=== PATIENT | female | born 1995 | race Caucasian/White ===

== ENCOUNTER 2017-01-20 08:24 | Emergency (ER) | payer MEDICAID, OTHER ==
[~2017-01-20] VITALS: Ht 154.9 cm; Wt 47.6 kg
[~2017-01-20 08:24] MED LIST: IBUP-2213 PO; TYL3 PO
[2017-01-20 08:32] VITALS: BP 105/53
--- NOTE | 2017-01-20 08:50 | NUR ---
PT PRESENTS TO ER W/C/O ABDOMINAL PAIN SINCE LAST NOC. 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 ER MD MADE AWARE OF PT STATUS.
--- NOTE | 2017-01-20 09:03 | NUR ---
ULTRASOUND AT BEDSIDE
[2017-01-20 09:07] LABS: BASOPHILS # (AUTO) 0.2 K/uL (0.00-0.22); BASOPHILS % (AUTO) 1.6 % (0.0-2.0); EOSINOPHILS # (AUTO) 0.3 K/uL (0-0.4); EOSINOPHILS % (AUTO) 2.7 % (0.0-4.0); HEMOGLOBIN 13.4 g/dL (12.0-16.0); LYMPHOCYTES # (AUTO) 1.5 K/uL (2.5-16.5); LYMPHOCYTES % (AUTO) 13.7 % (20.5-51.1); MEAN CORPUSCULAR HEMOGLOBIN 31 pg (27-31); MEAN CORPUSCULAR HGB CONC 33 g/dL (33-37); MEAN CORPUSCULAR VOLUME 92 fL (80-94); MONOCYTES # (AUTO) 0.6 K/uL (0.8-1.0); MONOCYTES % (AUTO) 5.8 % (1.7-9.3); NEUTROPHILS # (AUTO) 8.2 K/uL (1.8-7.7); NEUTROPHILS % (AUTO) 76.2 % (42.2-75.2); PLATELET COUNT (AUTO) 296 K/uL (140-450); RED BLOOD CELL COUNT(AUTO) 4.34 MIL/uL (4.20-5.40); RED CELL DISTRIBUTION WIDTH 11.6 % (11.6-13.7); WHITE BLOOD COUNT (AUTO) 10.8 K/uL (4.8-10.8)
[2017-01-20] MEDS ORDERED: ACETAMINOPHEN EXTRA STRENGTH 500 MG TAB PO ONE (09:15)
[2017-01-20] MEDS ORDERED: ONDANSETRON 4 MG/2 ML VIAL IVP ONE (09:15)
[2017-01-20] MEDS ORDERED: NACL 0.9% 1,000 ML IV ONE (09:15)
[2017-01-20 09:17] LABS: BILIRUBIN,URINE NEGATIVE (NEGATIVE); BLOOD, URINE NEGATIVE (NEGATIVE); COLOR,URINE YELLOW (YELLOW); LEUKOCYTE ESTERASE ,URINE TRACE (NEGATIVE); NITRITE, URINE NEGATIVE (NEGATIVE); PROTEIN,URINE NEGATIVE (NEGATIVE); UGLUCOSE NEGATIVE (NEGATIVE)
[2017-01-20 09:26] LABS: APPEARANCE,URINE HAZY (CLEAR)
[2017-01-20 09:27] LABS: BACTERIA,URINE 1+ /HPF (None Seen); RBC,URINE 0-5 (RARE) /HPF (0-5); SQUAMOUS EPITHELIAL CELL,UR 20-50 /LPF (0-3 (FEW)); WBC,URINE 0-5 (RARE) /HPF (0-5)
[2017-01-20] MEDS ORDERED: CLINDAMYCIN 150 MG CAP PO ONE (12:50)
--- NOTE | 2017-01-20 13:11 | NUR ---
SS NOTE: I SPOKE WITH PT BEDSIDE. I PROVIDED HER WITH SUBSTANCE ABUSE AND FAMILY PLANNING RESOURCES. I ADVISED PT TO FOLLOW UP ON THOSE RESOURCES, PT VERBALIZED UNDERSTANDING.
--- NOTE | 2017-01-20 13:26 | NUR ---
MACROBID WILL BE TAKEN BY THE PT AT HOME SCHEDULED AT 1700
[2017-01-20 13:28] VITALS: BP 104/61
--- NOTE | 2017-01-20 13:28 | NUR ---
Patient discharged with v/s stable. Written and verbal after care instructions given and explained. Patient alert, oriented and verbalized understanding of instructions. Ambulatory with steady gait. All questions addressed prior to discharge. ID band removed. Patient advised to follow up with PMD. Rx of CLINDAMYCIN, ZOFRAN, MACROBID given. Patient educated on indication of medication including possible reaction and side effects. Opportunity to ask questions provided and answered.
[2017-01-20] MEDS ORDERED: NITROFURANTOIN 100 MG CAP PO SCH (17:00)
[2017-01-22 06:28] LABS: CHLAMYDIA TRACHOMATIS AMP DNA Negative (Negative)
== END 2017-01-20 13:28 | disposition home or self-care (01) ==
LOC: MED 08:24
DX: O20.0 Threatened abortion (principal); O99.322 Drug use complicating pregnancy, second trimester; F15.10 Other stimulant abuse, uncomplicated; O23.592 Infection of other part of genital tract in pregnancy, second trimester; B96.89 Other specified bacterial agents as the cause of diseases classified elsewhere; Z3A.16 16 weeks gestation of pregnancy
CPT/HCPCS: 36415; 76805; 81001; 84702; 85025; 86900; 86901; 87070; 87086; 87205; 87210; 87491; 96361; 96374; 99285; J2405; J7030; Q0092

== ENCOUNTER 2017-12-22 19:11 | Emergency (ER) | payer MEDICAID ==
[~2017-12-22] VITALS: Ht 154.9 cm; Wt 46.0 kg
[2017-12-22 19:15] VITALS: BP 109/85
[2017-12-22] MEDS: cefTRIAXone 1,000 MG in LIDOCAINE MPF 1% - **ER/OR** 2.1 ML IM ONE (19:56)
[2017-12-22 20:06] VITALS: BP 110/80
== END 2017-12-22 20:05 | disposition home or self-care (01) ==
LOC: MED 19:11
DX: N39.0 Urinary tract infection, site not specified (principal); Z90.49 Acquired absence of other specified parts of digestive tract
CPT/HCPCS: 81002; 81025; 87086; 96372; 99283; J0696; J2001

== ENCOUNTER 2018-05-08 14:18 | Emergency (ER) | payer MEDICAID ==
[~2018-05-08] VITALS: Ht 154.9 cm; Wt 46.3 kg
[2018-05-08 14:25] VITALS: BP 115/71
--- NOTE | 2018-05-08 14:32 | NUR ---
PT AMBULATED TO ER BED 01
--- NOTE | 2018-05-08 15:05 | NUR ---
PATIENT COMPLAINING OF ABDOMINAL CRAMPING WITH VAG. BLEED TODAY,DENIES BLOOD CLOT,DENIES TISSUE. RECIEVED OB/GYNE CARE IN [place] PER PATIENT. 8WKS. 3DAYS GESTATION.
[2018-05-08 15:17] LABS: BASOPHILS % (AUTO) 0.2 % (0.0-2.0); EOSINOPHILS # (AUTO) 0.2 K/uL (0-0.4); EOSINOPHILS % (AUTO) 1.4 % (0.0-4.0); HEMATOCRIT 38.8 % (36-48); LYMPHOCYTES # (AUTO) 2.1 K/uL (2.5-16.5); LYMPHOCYTES % (AUTO) 17.8 % (20.5-51.1); MEAN CORPUSCULAR HEMOGLOBIN 30 pg (27-31); MEAN CORPUSCULAR HGB CONC 33 g/dL (33-37); MEAN CORPUSCULAR VOLUME 89.8 fL (80-94); MONOCYTES # (AUTO) 0.9 K/uL (0.8-1.0); MONOCYTES % (AUTO) 7.3 % (1.7-9.3); NEUTROPHILS # (AUTO) 8.8 K/uL (1.8-7.7); NEUTROPHILS % (AUTO) 73.3 % (42.2-75.2); PLATELET COUNT (AUTO) 290 K/uL (140-450); RED BLOOD CELL COUNT(AUTO) 4.33 MIL/uL (4.20-5.40); RED CELL DISTRIBUTION WIDTH 13.8 % (11.6-13.7)
[2018-05-08 15:19] LABS: BILIRUBIN,URINE NEGATIVE (NEGATIVE); BLOOD, URINE 3+ (NEGATIVE); COLOR,URINE YELLOW (YELLOW); LEUKOCYTE ESTERASE ,URINE NEGATIVE (NEGATIVE); NITRITE, URINE NEGATIVE (NEGATIVE); UGLUCOSE NEGATIVE (NEGATIVE)
[2018-05-08 15:31] LABS: APPEARANCE,URINE HAZY (CLEAR)
[2018-05-08 15:33] LABS: RBC,URINE 11-20 (MOD) /HPF (0-5); WBC,URINE 0-5 (RARE) /HPF (0-5)
--- NOTE | 2018-05-08 15:48 | NUR ---
PELVIC EXAM. BY DR. MOSCOSO. NURSE PRESENT ESCORT AT BEDSIDE
--- NOTE | 2018-05-08 16:23 | NUR ---
PT LAYING IN BED, IN NAD. RESP EVEN AND UNLABORED, DENIES ANY PAIN AT THIS TIME. DENIES FURTHER VAGINAL BLEEDING AT THIS TIME.
--- NOTE | 2018-05-08 17:48 | NUR ---
NO ACUTE CHNAGES IN CONDITON, AWAIITNG FURTHER DISPOSITION.
[2018-05-08 18:12] VITALS: BP 116/78
--- NOTE | 2018-05-08 18:15 | NUR ---
Patient discharged with v/s stable. Written and verbal after care instructions given and explained. Patient verbalized understanding. Ambulatory with steady gait. All questions addressed prior to discharge. Advised to follow up with PMD.
== END 2018-05-08 18:15 | disposition home or self-care (01) ==
LOC: MED 14:18
DX: O20.0 Threatened abortion (principal); J45.909 Unspecified asthma, uncomplicated; Z3A.09 9 weeks gestation of pregnancy; Z79.899 Other long term (current) drug therapy; Z90.49 Acquired absence of other specified parts of digestive tract
CPT/HCPCS: 36415; 76817; 81001; 81025; 84702; 85025; 86900; 86901; 99285; Q0092

== ENCOUNTER 2018-11-17 11:54 | Emergency (ER) | payer MEDICAID ==
[~2018-11-17] VITALS: Ht 154.9 cm; Wt 44.5 kg
[2018-11-17 12:00] VITALS: BP 103/58
--- NOTE | 2018-11-17 12:14 | NUR ---
BIB SELF. PT PRESENTS TO ED WITH C/O VAGINAL DISCHARGE. CRAMPING PAIN ON LOWER BACK 04/16. PATIENT STATES SHE IS CURRENTLY APPROX 9 WEEKS. PT STATES NO CARE. DENIES N/V/D. AFEBRILE. PATIENT POSITIONED FOR COMFORT; HOB ELEVATED; BEDRAILS UP X2; BED DOWN. ER MD MADE AWARE OF PT STATUS. PMH: HIGH RISK , ASTHMA MED RX: ALBUTEROL
[2018-11-17 13:22] LABS: BILIRUBIN,URINE NEGATIVE (NEGATIVE); BLOOD, URINE NEGATIVE (NEGATIVE); COLOR,URINE YELLOW (YELLOW); LEUKOCYTE ESTERASE ,URINE 3+ (NEGATIVE); NITRITE, URINE NEGATIVE (NEGATIVE); UGLUCOSE NEGATIVE (NEGATIVE)
[2018-11-17 13:35] LABS: APPEARANCE,URINE SLIGHTLY CLOUDY (CLEAR)
[2018-11-17 13:40] LABS: RBC,URINE 0-5 /HPF (0-5)
--- NOTE | 2018-11-17 13:43 | NUR ---
PATIENT ELOPED FROM FACILITY. DISCHARGE INSTRUCTIONS NOT GIVEN TO PATIENT. DR. MOSCOSO NOTIFIED.
[2018-11-17 13:44] VITALS: BP 90/57
[2018-11-19 06:34] LABS: CHLAMYDIA TRACHOMATIS AMP DNA Negative (Negative)
== END 2018-11-17 13:43 | disposition left against medical advice (07) ==
LOC: MED 11:54
DX: O26.891 Other specified pregnancy related conditions, first trimester (principal); N89.8 Other specified noninflammatory disorders of vagina; M54.5 Low back pain; R11.0 Nausea; O99.331 Smoking (tobacco) complicating pregnancy, first trimester; J45.909 Unspecified asthma, uncomplicated; Z3A.09 9 weeks gestation of pregnancy; Z79.1 Long term (current) use of non-steroidal anti-inflammatories (NSAID); Z90.49 Acquired absence of other specified parts of digestive tract
CPT/HCPCS: 36415; 81001; 81025; 87086; 87491; 99283

== ENCOUNTER 2018-11-30 22:03 | Emergency (ER) | payer MEDICAID ==
[~2018-11-30] VITALS: Ht 152.4 cm; Wt 45.4 kg
[2018-11-30 22:14] VITALS: BP 117/69
--- NOTE | 2018-11-30 22:18 | NUR ---
TO LOBBY A/W BED, BETH DAVIS NOTED,
--- NOTE | 2018-11-30 22:39 | NUR ---
TAKEN TO US VIA WC.
[2018-11-30 22:44] LABS: BASOPHILS % (AUTO) 0.3 % (0.0-2.0); EOSINOPHILS # (AUTO) 0.1 K/uL (0-0.4); EOSINOPHILS % (AUTO) 1.4 % (0.0-4.0); HEMATOCRIT 30.6 % (36-48); HEMOGLOBIN 10.5 g/dL (12.0-16.0); LYMPHOCYTES # (AUTO) 2.1 K/uL (2.5-16.5); LYMPHOCYTES % (AUTO) 19.5 % (20.5-51.1); MEAN CORPUSCULAR HEMOGLOBIN 31 pg (27-31); MEAN CORPUSCULAR HGB CONC 34 g/dL (33-37); MEAN CORPUSCULAR VOLUME 89.5 fL (80-94); MONOCYTES # (AUTO) 0.9 K/uL (0.8-1.0); MONOCYTES % (AUTO) 8.9 % (1.7-9.3); NEUTROPHILS # (AUTO) 7.4 K/uL (1.8-7.7); NEUTROPHILS % (AUTO) 69.9 % (42.2-75.2); PLATELET COUNT (AUTO) 271 K/uL (140-450); RED BLOOD CELL COUNT(AUTO) 3.41 MIL/uL (4.20-5.40); RED CELL DISTRIBUTION WIDTH 13.9 % (11.6-13.7); WHITE BLOOD COUNT (AUTO) 10.6 K/uL (4.8-10.8)
--- NOTE | 2018-11-30 23:03 | NUR ---
PT AMBULATED TO ER BED 12
--- NOTE | 2018-11-30 23:10 | NUR ---
LAB AT BEDSIDE.
--- NOTE | 2018-11-30 23:28 | NUR ---
PT BIB SELF C/O VOMITING AND UPPER ABD PAIN. PT STATE SHE HAD BEEN VOMITING X3 DAYS, AND 7/10 UPPER ABD PAIN. +INTRACTABLE VOMITING. +UPPER ABD PAIN, +TENDERNESS. THIN YELLOW BROWN EMESIS NOTED. PT STATES BURNING W/ URINATION X1 MONTH. LMP: 09/16/18, PT STATES SHE IS CURRENTLY , DENIES CARE AT THIS TIME. BOWEL SOUNDS ACTIVE X4 QUAD. BREATHING EQUAL AND UNLABORED. SKIN WARM, DRY AND INTACT. LUNG SOUNDS CLEAR BL. PT ACTING APPROPRIATLY. CLEAR SPEECH. PT IN GOWN IN BED; BED IN LOWER LOCKED POSITION. ER MD MADE AWARE OF PT STATUS. WILL CONTINUE TO MONITOR. PMH: DENIES RX: DENIES
[2018-11-30] MEDS ORDERED: ONDANSETRON 4 MG ODT PO ONE (23:30)
--- NOTE | 2018-12-01 01:15 | NUR ---
PT DOES STATE SOME RELIEF FROM NAUSEA AFTER MEDICATION, WARM BLANKET PROVIDED. COMFORT MEASURES PROVIDED.
--- NOTE | 2018-12-01 02:35 | NUR ---
DR. FOX AT BEDSIDE FOR EVALUATION.
[2018-12-01] MEDS ORDERED: ONDANSETRON 4 MG/2 ML VIAL IVP ONE (02:45)
[2018-12-01] MEDS ORDERED: NACL 0.9% 1,000 ML IV ONE (02:45)
--- NOTE | 2018-12-01 03:05 | NUR ---
IV START: R AC 20G. FLUSHED WELL W/O RESISTANCE. NO REDNESS OR SWELLING NOTED. CLEAR TRANSPARENT DRESSING APPLIED. PT TOLERATED WELL.
--- NOTE | 2018-12-01 03:48 | NUR ---
PT REQUESTING TYLENOL FOR PAIN AT THIS TIME. PT STATES PAIN 03/16 ABD PAIN. ER MD AWARE.
[2018-12-01] MEDS ORDERED: ACETAMINOPHEN EXTRA STRENGTH 500 MG TAB PO ONE (03:50)
[2018-12-01 04:22] LABS: APPEARANCE,URINE CLOUDY (CLEAR); BILIRUBIN,URINE NEGATIVE (NEGATIVE); BLOOD, URINE NEGATIVE (NEGATIVE); COLOR,URINE YELLOW (YELLOW); LEUKOCYTE ESTERASE ,URINE NEGATIVE (NEGATIVE); NITRITE, URINE NEGATIVE (NEGATIVE); PH,URINE 7.5 (5.0-9.0); UGLUCOSE NEGATIVE (NEGATIVE)
--- NOTE | 2018-12-01 04:23 | NUR ---
Patient discharged with v/s stable. Written and verbal after care instructions given and explained. Patient alert, oriented and verbalized understanding of instructions. Ambulatory with steady gait. All questions addressed prior to discharge. ID band removed. Patient advised to follow up with PMD. Rx of BENADRYL, ZOFRAN given. Patient educated on indication of medication including possible reaction and side effects. Opportunity to ask questions provided and answered.
[2018-12-01 04:31] VITALS: BP 100/58
[2018-12-01 04:41] LABS: RBC,URINE 0-5 /HPF (0-5)
[2018-12-01 04:42] LABS: URINE AMORPHOUS URATE 4+ /HPF (None Seen); WBC,URINE 0-5 /HPF (0-5)
== END 2018-12-01 04:23 | disposition home or self-care (01) ==
LOC: MED 22:03
DX: O20.0 Threatened abortion (principal); J45.909 Unspecified asthma, uncomplicated; Z3A.08 8 weeks gestation of pregnancy; Z90.49 Acquired absence of other specified parts of digestive tract; Z79.1 Long term (current) use of non-steroidal anti-inflammatories (NSAID)
CPT/HCPCS: 36415; 76817; 81001; 81025; 84702; 85025; 86900; 86901; 96361; 96374; 99284; J2405; Q0092; Q0162

== ENCOUNTER 2019-01-27 15:02 | Emergency (ER) | payer MEDICAID ==
[~2019-01-27] VITALS: Ht 154.9 cm; Wt 50.0 kg
[2019-01-27 15:16] VITALS: BP 113/69
--- NOTE | 2019-01-27 15:20 | NUR ---
PT WHEEL CHAIR ASSISTED BY KATHRYN SALVADOR TO L&D PER DR VILLEGAS
--- NOTE | 2019-01-27 15:25 | NUR ---
MARISOL HUA AT L&D THEY WILL KEEP THE PT IN L&D
--- NOTE | 2019-01-27 15:43 | NUR ---
PT TX FROM L&D TO ER BED 10
--- NOTE | 2019-01-27 15:45 | NUR ---
PT C/O LOWER ABD PAIN. PT 17 WEEKS , G3, P2. EDC 07/01/19. FHT 148.
--- NOTE | 2019-01-27 15:53 | NUR ---
DR. VILLEGAS BEDSIDE EVALUATING PT
[2019-01-27] MEDS ORDERED: IBUPROFEN 800 MG TAB PO ONE (16:15)
[2019-01-27 16:42] LABS: APPEARANCE,URINE HAZY (CLEAR); BILIRUBIN,URINE NEGATIVE (NEGATIVE); BLOOD, URINE NEGATIVE (NEGATIVE); COLOR,URINE YELLOW (YELLOW); LEUKOCYTE ESTERASE ,URINE 2+ (NEGATIVE); NITRITE, URINE NEGATIVE (NEGATIVE); UGLUCOSE NEGATIVE (NEGATIVE)
[2019-01-27 16:43] LABS: RBC,URINE 0-5 /HPF (0-5); WBC,URINE >25 (MANY) /HPF (0-5)
== END 2019-01-27 16:36 | disposition home or self-care (01) ==
LOC: MED 15:02
DX: O26.892 Other specified pregnancy related conditions, second trimester (principal); R10.9 Unspecified abdominal pain; J45.909 Unspecified asthma, uncomplicated; Z79.899 Other long term (current) drug therapy; Z3A.17 17 weeks gestation of pregnancy
CPT/HCPCS: 36415; 81001; 87086; 99283

== ENCOUNTER 2019-02-10 13:48 | Observation (INO) | payer MEDICAID ==
[~2019-02-10] VITALS: Ht 154.9 cm; Wt 51.3 kg
[2019-02-10 14:00] VITALS: BP 125/77
[2019-02-10 14:46] VITALS: BP 101/60
== END 2019-02-10 15:25 | disposition home or self-care (01) ==
LOC: MED 13:48 → MLD 14:10
PROVIDERS: ADMIT Obstetrics & Gynecology; ATTEND Obstetrics & Gynecology
DX: O46.92 Antepartum hemorrhage, unspecified, second trimester (principal); Z3A.23 23 weeks gestation of pregnancy
CPT/HCPCS: 81000; 99281; G0378

== ENCOUNTER 2019-04-20 00:15 | Observation (INO) | payer MEDICAID ==
[~2019-04-20] VITALS: Ht 157.5 cm; Wt 59.0 kg
[2019-04-20 00:53] VITALS: BP 99/64
[2019-04-20 02:18] LABS: BASOPHILS % (AUTO) 0.2 % (0.0-2.0); EOSINOPHILS # (AUTO) 0.2 K/uL (0-0.4); EOSINOPHILS % (AUTO) 1.3 % (0.0-4.0); HEMATOCRIT 31.8 % (36-48); HEMOGLOBIN 10.8 g/dL (12.0-16.0); LYMPHOCYTES % (AUTO) 13.5 % (20.5-51.1); MEAN CORPUSCULAR HEMOGLOBIN 30 pg (27-31); MEAN CORPUSCULAR HGB CONC 34 g/dL (33-37); MEAN CORPUSCULAR VOLUME 89.9 fL (80-94); MONOCYTES # (AUTO) 0.7 K/uL (0.8-1.0); MONOCYTES % (AUTO) 5.2 % (1.7-9.3); NEUTROPHILS # (AUTO) 11.6 K/uL (1.8-7.7); NEUTROPHILS % (AUTO) 79.8 % (42.2-75.2); PLATELET COUNT (AUTO) 286 K/uL (140-450); RED BLOOD CELL COUNT(AUTO) 3.54 MIL/uL (4.20-5.40); RED CELL DISTRIBUTION WIDTH 13.8 % (11.6-13.7); WHITE BLOOD COUNT (AUTO) 14.5 K/uL (4.8-10.8)
[2019-04-20 02:21] LABS: APPEARANCE,URINE SL CLOUDY (CLEAR); BILIRUBIN,URINE NEGATIVE (NEGATIVE); BLOOD, URINE NEGATIVE (NEGATIVE); COLOR,URINE YELLOW (YELLOW); LEUKOCYTE ESTERASE ,URINE 3+ (NEGATIVE); NITRITE, URINE NEGATIVE (NEGATIVE); UGLUCOSE NEGATIVE (NEGATIVE)
[2019-04-20 02:38] LABS: BARBITURATE, URINE NEG. ng/ml (NEG <=200); BENZODIAZEPINE, URINE NEG. ng/mL (NEG <=200); CANNABINOID, URINE POS. ng/mL (NEG <=50); COCAINE, URINE NEG. ng/mL (NEG <=300); OPIATE, URINE NEG. ng/mL (NEG <=2000); PHENCYCLIDINE SCREEN,URINE NEG. ng/mL (NEG <=25)
[2019-04-20 02:42] LABS: ALBUMIN 2.3 g/dL (3.4-5.0); ANION GAP 10.7 (8-16); CREATININE 0.4 mg/dL (0.6-1.3); POTASSIUM 3.7 mmol/L (3.5-5.1); TOTAL BILIRUBIN 0.1 mg/dL (0.0-1.0)
[2019-04-20 02:53] LABS: RBC,URINE 0-5 /HPF (0-5)
[2019-04-20] MEDS ORDERED: LACTATED RINGERS 1,000 ML IV SCH (03:20)
[2019-04-20] MEDS ORDERED: NACL 0.9% 1,000 ML IV SCH (03:25)
[2019-04-20] MEDS ORDERED: cefTRIAXone 1,000 MG VIAL ONE (03:56)
== END 2019-04-20 15:05 | disposition home or self-care (01) ==
LOC: MLD 00:15
PROVIDERS: ADMIT Obstetrics & Gynecology; ATTEND Obstetrics & Gynecology
DX: O62.9 Abnormality of forces of labor, unspecified (principal); O99.513 Diseases of the respiratory system complicating pregnancy, third trimester; O26.893 Other specified pregnancy related conditions, third trimester; N89.8 Other specified noninflammatory disorders of vagina; J45.909 Unspecified asthma, uncomplicated; F15.90 Other stimulant use, unspecified, uncomplicated; F12.90 Cannabis use, unspecified, uncomplicated; Z72.0 Tobacco use; Z3A.29 29 weeks gestation of pregnancy
CPT/HCPCS: 36415; 76805; 80053; 80305; 81001; 82731; 85025; 87086; 87210; G0378; J0696; J7060; Q0092

== ENCOUNTER 2019-05-13 09:29 | Inpatient (IN) | payer MEDICAID, OTHER ==
[~2019-05-13] VITALS: Ht 154.9 cm; Wt 59.0 kg
[2019-05-13] MEDS ORDERED: PREN-380 PO (09:59)
[2019-05-13] MEDS: LACTATED RINGERS 1,000 ML IV SCH ×2 (10:28→17:28)
[2019-05-13 10:34] LABS: BASOPHILS % (AUTO) 0.2 % (0.0-2.0); EOSINOPHILS # (AUTO) 0.1 K/uL (0-0.4); HEMATOCRIT 32.7 % (36-48); HEMOGLOBIN 11.1 g/dL (12.0-16.0); LYMPHOCYTES # (AUTO) 2.3 K/uL (2.5-16.5); LYMPHOCYTES % (AUTO) 22.8 % (20.5-51.1); MEAN CORPUSCULAR HEMOGLOBIN 31 pg (27-31); MEAN CORPUSCULAR HGB CONC 34 g/dL (33-37); MONOCYTES # (AUTO) 0.6 K/uL (0.8-1.0); MONOCYTES % (AUTO) 6.2 % (1.7-9.3); NEUTROPHILS % (AUTO) 69.8 % (42.2-75.2); PLATELET COUNT (AUTO) 268 K/uL (140-450); RED BLOOD CELL COUNT(AUTO) 3.59 MIL/uL (4.20-5.40); RED CELL DISTRIBUTION WIDTH 14.3 % (11.6-13.7); WHITE BLOOD COUNT (AUTO) 10.1 K/uL (4.8-10.8)
[2019-05-13] MEDS: BETAMETH ACET/BETAMETH NA PH 30 MG/5 ML VIAL IM SCH (10:34)
[2019-05-13] MEDS ORDERED: BETAMETH ACET/BETAMETH NA PH 30 MG/5 ML VIAL IM ONE (10:40)
[2019-05-13 10:46] LABS: ALBUMIN 2.7 g/dL (3.4-5.0); ANION GAP 15.8 (8-16); CARBON DIOXIDE 19.9 mmol/L (21-32); CREATININE 0.4 mg/dL (0.6-1.3); POTASSIUM 3.7 mmol/L (3.5-5.1); TOTAL BILIRUBIN 0.3 mg/dL (0.0-1.0)
[2019-05-13 11:09] LABS: BARBITURATE, URINE NEG. ng/ml (NEG <=200); BENZODIAZEPINE, URINE NEG. ng/mL (NEG <=200); CANNABINOID, URINE POS. ng/mL (NEG <=50); COCAINE, URINE NEG. ng/mL (NEG <=300); OPIATE, URINE NEG. ng/mL (NEG <=2000); PHENCYCLIDINE SCREEN,URINE NEG. ng/mL (NEG <=25)
[2019-05-13 11:20] LABS: APPEARANCE,URINE CLEAR (CLEAR); BILIRUBIN,URINE NEGATIVE (NEGATIVE); BLOOD, URINE NEGATIVE (NEGATIVE); COLOR,URINE YELLOW (YELLOW); LEUKOCYTE ESTERASE ,URINE NEGATIVE (NEGATIVE); NITRITE, URINE NEGATIVE (NEGATIVE); UGLUCOSE NEGATIVE (NEGATIVE)
[2019-05-13] MEDS ORDERED: NALBUPHINE 10 MG/ML AMP IVP PRN (11:50)
[2019-05-13] MEDS ORDERED: NALBUPHINE 10 MG/ML AMP ONE (12:11)
[2019-05-13] MEDS ORDERED: MORPHINE SULFATE 10 MG/ML VIAL IM/IVP PRN (14:40)
[2019-05-13] MEDS ORDERED: MORPHINE SULFATE 2 MG/ML SYR IVP PRN (15:00)
[2019-05-13] MEDS: ONDANSETRON 4 MG/2 ML VIAL IVP PRN ×2 (15:14→20:24)
[2019-05-13] MEDS: MORPHINE SULFATE 10 MG/ML VIAL IVP PRN ×3 (15:15→21:27)
[2019-05-13] MEDS ORDERED: ONDANSETRON 4 MG/2 ML VIAL ONE ×2 (15:17→20:33)
[2019-05-13] MEDS ORDERED: MORPHINE SULFATE 10 MG/ML VIAL ONE ×4 (15:19→21:36)
[2019-05-14] MEDS ORDERED: ONDANSETRON 4 MG/2 ML VIAL ONE (00:44)
[2019-05-14] MEDS: ONDANSETRON 4 MG/2 ML VIAL IVP PRN (00:59)
[2019-05-14] MEDS: NALBUPHINE 10 MG/ML AMP IVP PRN ×4 (01:40→19:52)
[2019-05-14] MEDS: LACTATED RINGERS 1,000 ML IV SCH ×3 (01:44→21:24)
[2019-05-14] MEDS ORDERED: NALBUPHINE 10 MG/ML AMP ONE ×4 (01:50→20:00)
[2019-05-14] MEDS: BETAMETH ACET/BETAMETH NA PH 30 MG/5 ML VIAL IM SCH (10:11)
[2019-05-14] MEDS ORDERED: BETAMETH ACET/BETAMETH NA PH 30 MG/5 ML VIAL IM ONE (10:13)
[2019-05-15] MEDS: NALBUPHINE 10 MG/ML AMP IVP PRN ×2 (02:11→06:53)
[2019-05-15] MEDS ORDERED: NALBUPHINE 10 MG/ML AMP ONE ×2 (02:20→07:01)
[2019-05-15] MEDS: LACTATED RINGERS 1,000 ML IV SCH (05:18)
[2019-05-15] MEDS ORDERED: ONDANSETRON 4 MG/2 ML VIAL ONE (06:27)
[2019-05-15] MEDS: ONDANSETRON 4 MG/2 ML VIAL IVP PRN (06:52)
== END 2019-05-15 12:48 | disposition home or self-care (01) | DRG 563 ==
LOC: MLD 09:29 → OBSVTOIN 09:30 → UNDODISOB 05-15 12:48
PROVIDERS: ADMIT Obstetrics & Gynecology; ATTEND Obstetrics & Gynecology
DX: O60.03 Preterm labor without delivery, third trimester (principal); O99.323 Drug use complicating pregnancy, third trimester; O26.893 Other specified pregnancy related conditions, third trimester; F15.90 Other stimulant use, unspecified, uncomplicated; Z3A.32 32 weeks gestation of pregnancy; G47.00 Insomnia, unspecified
CPT/HCPCS: 36415; 76817; 80053; 80305; 81003; 85025; 86886; 86900; 86901; G0378; J0702; J2270; J2300; J2405; J7120; Q0092

== ENCOUNTER 2019-06-08 20:15 | Inpatient (IN) | payer MEDICAID ==
[~2019-06-08] VITALS: Ht 154.9 cm; Wt 61.7 kg
[~2019-06-08 20:15] MED LIST changes: -IBUP-2213 PO; +PREN-380 PO; -TYL3 PO
[2019-06-08] MEDS ORDERED: STOOL SOFTNER (20:46)
[2019-06-08] MEDS ORDERED: FERR-252 PO (20:46)
[2019-06-08 21:10] VITALS: BP 136/81
[2019-06-08 22:40] LABS: APPEARANCE,URINE CLEAR (CLEAR); BILIRUBIN,URINE NEGATIVE (NEGATIVE); BLOOD, URINE NEGATIVE (NEGATIVE); COLOR,URINE YELLOW (YELLOW); LEUKOCYTE ESTERASE ,URINE NEGATIVE (NEGATIVE); NITRITE, URINE NEGATIVE (NEGATIVE); PH,URINE 6.5 (5.0-9.0); UGLUCOSE NEGATIVE (NEGATIVE)
[2019-06-08 22:41] LABS: BASOPHILS % (AUTO) 0.3 % (0.0-2.0); EOSINOPHILS # (AUTO) 0.1 K/uL (0-0.4); HEMATOCRIT 35.3 % (36-48); HEMOGLOBIN 11.7 g/dL (12.0-16.0); LYMPHOCYTES # (AUTO) 2.3 K/uL (2.5-16.5); LYMPHOCYTES % (AUTO) 21.2 % (20.5-51.1); MEAN CORPUSCULAR HEMOGLOBIN 31 pg (27-31); MEAN CORPUSCULAR HGB CONC 33 g/dL (33-37); MEAN CORPUSCULAR VOLUME 94.6 fL (80-94); MONOCYTES # (AUTO) 0.7 K/uL (0.8-1.0); MONOCYTES % (AUTO) 6.9 % (1.7-9.3); NEUTROPHILS # (AUTO) 7.7 K/uL (1.8-7.7); NEUTROPHILS % (AUTO) 70.6 % (42.2-75.2); PLATELET COUNT (AUTO) 253 K/uL (140-450); RED BLOOD CELL COUNT(AUTO) 3.73 MIL/uL (4.20-5.40); RED CELL DISTRIBUTION WIDTH 15.3 % (11.6-13.7); WHITE BLOOD COUNT (AUTO) 10.9 K/uL (4.8-10.8)
[2019-06-08 22:46] LABS: BARBITURATE, URINE NEG. ng/ml (NEG <=200); BENZODIAZEPINE, URINE NEG. ng/mL (NEG <=200); CANNABINOID, URINE POS. ng/mL (NEG <=50); COCAINE, URINE NEG. ng/mL (NEG <=300); OPIATE, URINE NEG. ng/mL (NEG <=2000); PHENCYCLIDINE SCREEN,URINE NEG. ng/mL (NEG <=25)
[2019-06-08] MEDS ORDERED: NALBUPHINE 10 MG/ML AMP ONE (23:13)
[2019-06-08] MEDS: NALBUPHINE 10 MG/ML AMP IVP PRN (23:20)
[2019-06-08] MEDS ORDERED: AMPICILLIN 2,000 MG VIAL ONE (23:50)
[2019-06-09] MEDS ORDERED: AMPICILLIN 2,000 MG in NACL 0.9% 100 ML IV SCH (02:25)
[2019-06-09] MEDS ORDERED: AMPICILLIN 1,000 MG VIAL ONE ×5 (03:54→20:02)
[2019-06-09] MEDS: AMPICILLIN 1,000 MG in NACL 0.9% 50 ML IV SCH ×5 (04:02→20:11)
[2019-06-09] MEDS: LACTATED RINGERS 1,000 ML IV SCH ×2 (06:12→17:37)
--- NOTE | 2019-06-09 08:11 | NUR ---
PATIENT HAS BEEN SCREENED AND CATEGORIZED LOW NUTRITION RISK. PATIENT WILL BE SEEN WITHIN 7 DAYS OF ADMISSION. 06/15/[address]
[2019-06-09] MEDS ORDERED: ONDANSETRON 4 MG/2 ML VIAL IVP PRN (13:00)
[2019-06-09] MEDS ORDERED: ONDANSETRON 4 MG/2 ML VIAL ONE (13:40)
[2019-06-09] MEDS ORDERED: NALBUPHINE 10 MG/ML AMP ONE ×2 (13:51→21:18)
[2019-06-09] MEDS: NALBUPHINE 10 MG/ML AMP IVP PRN ×2 (13:54→21:25)
[2019-06-10] MEDS ORDERED: AMPICILLIN 1,000 MG VIAL ONE ×7 (00:03→23:44)
[2019-06-10] MEDS: AMPICILLIN 1,000 MG in NACL 0.9% 50 ML IV SCH ×2 (00:16→04:03)
[2019-06-10] MEDS ORDERED: NALBUPHINE 10 MG/ML AMP ONE ×2 (09:06→13:58)
[2019-06-10] MEDS: NALBUPHINE 10 MG/ML AMP IVP PRN ×2 (09:09→14:00)
[2019-06-10] MEDS: LACTATED RINGERS 1,000 ML IV SCH (12:05)
[2019-06-10] MEDS ORDERED: OXYTOCIN 20 UNITS/LR PREMIX 1,000 ML IV ONE (14:55)
[2019-06-10] MEDS ORDERED: BUTORPHANOL 2 MG/ML VIAL IVP PRN (16:55)
[2019-06-10] MEDS ORDERED: BUTORPHANOL 2 MG/ML VIAL ONE ×2 (17:11→23:15)
[2019-06-10] MEDS: BUTORPHANOL 2 MG/ML VIAL IVP PRN ×2 (17:13→23:19)
[2019-06-11] MEDS: AMPICILLIN 1,000 MG in NACL 0.9% 50 ML IV SCH ×2
[2019-06-11] MEDS ORDERED: ROPIVACAINE 0.2%/NS PREMIX 100 ML EPI ONE (00:33)
[2019-06-11] MEDS ORDERED: MEASLES, MUMPS, AND RUBELLA 1 VIAL SQVAC PRN (01:30)
[2019-06-11] MEDS ORDERED: METHYLERGONOVINE 0.2 MG TAB PO PRN (01:30)
[2019-06-11] MEDS ORDERED: OXYTOCIN 10 UNITS/ML VIAL IM PRN (01:30)
[2019-06-11] MEDS ORDERED: BENZOCAINE/MENTHOL 20%-0.5% 60 GM CAN TP PRN (01:30)
[2019-06-11] MEDS ORDERED: METHYLERGONOVINE 0.2 MG/ML AMP IM PRN (01:30)
[2019-06-11] MEDS: IBUPROFEN 800 MG TAB PO PRN ×3 (03:58→21:24)
[2019-06-11] MEDS ORDERED: DOCUSATE SOD/SENNA 50/8.6 MG 1 TAB PO SCH (21:00)
[2019-06-12 02:00] LABS: HEMATOCRIT 32.9 % (36-48); HEMOGLOBIN 11.1 g/dL (12.0-16.0)
[2019-06-12] MEDS: IBUPROFEN 800 MG TAB PO PRN ×2 (07:56→14:36)
[2019-06-13] MEDS: IBUPROFEN 800 MG TAB PO PRN ×2 (05:49→14:45)
[2019-06-13 18:17] LABS: APPEARANCE,URINE CLEAR (CLEAR); COLOR,URINE YELLOW (YELLOW); PH,URINE 6.5 (5.0-9.0)
[2019-06-13 18:18] LABS: BILIRUBIN,URINE NEGATIVE (NEGATIVE); BLOOD, URINE 3+ (NEGATIVE); LEUKOCYTE ESTERASE ,URINE NEGATIVE (NEGATIVE); NITRITE, URINE NEGATIVE (NEGATIVE); UGLUCOSE NEGATIVE (NEGATIVE)
[2019-06-13 20:02] LABS: RBC,URINE 20-50 /HPF (0-5); WBC,URINE NONE SEEN /HPF (0-5)
== END 2019-06-13 18:50 | disposition home or self-care (01) | DRG 560 ==
LOC: MLD 20:15 → OBSVTOIN 06-09 02:31 → MFCC 06-11 03:27
PROVIDERS: ADMIT Obstetrics & Gynecology; ATTEND Obstetrics & Gynecology
PROC: 10E0XZZ Delivery of Products of Conception, External Approach (ICD-10-PCS; principal; 2019-06-11)
PROC: 3E0R3BZ Introduction of Anesthetic Agent into Spinal Canal, Percutaneous Approach (ICD-10-PCS; 2019-06-11)
PROC: 00HU33Z Insertion of Infusion Device into Spinal Canal, Percutaneous Approach (ICD-10-PCS; 2019-06-11)
PROC: 3E0234Z Introduction of Serum, Toxoid and Vaccine into Muscle, Percutaneous Approach (ICD-10-PCS; 2019-06-11)
PROC: 3E02340 Introduction of Influenza Vaccine into Muscle, Percutaneous Approach (ICD-10-PCS; 2019-06-11)
DX: O60.13X0 Preterm labor second trimester with preterm delivery third trimester, not applicable or unspecified (principal); O99.824 Streptococcus B carrier state complicating childbirth; Z23 Encounter for immunization; Z37.0 Single live birth; Z3A.37 37 weeks gestation of pregnancy
CPT/HCPCS: G0378 ×6; 36415; 59409; 76815; 80305; 81001; 81003; 85018; 85025; 86592; 86886; 86900; 86901; 87653-90; 90715; J0290; J0595; J2300; J2405; J2590; J2795; J7120; Q0092

== ENCOUNTER 2019-07-29 23:58 | Emergency (ER) | payer MEDICAID ==
[~2019-07-29] VITALS: Ht 154.9 cm; Wt 52.2 kg
[~2019-07-29 23:58] MED LIST changes: +FERR-252 PO; +STOOL SOFTNER
[2019-07-30 00:03] VITALS: BP 127/72
--- NOTE | 2019-07-30 00:12 | NUR ---
PT AMBULATED TO LOBBY WITH VSS
--- NOTE | 2019-07-30 00:19 | NUR ---
24 Y/O FEMALE C/O DIFFUSE ABDOMINAL PAIN X2130, SUDDEN ONSET. +N/V, APPETITE CHANGES, AND CHILLS. ABDOMEN SOFT AND FLAT. ABDOMINAL SOUNDS HEARD ON ALL FOUR QUADRANTS. PAIN UPON PALPATION. PAIN 6/10 ACUTE. ERMD MADE AWARE OF STATUS. SIDE RAILSX1. PLACED ON MONITOR. HX- DRUG ABUSE NKA RX:DENIES
--- NOTE | 2019-07-30 00:19 | NUR ---
PT AMBULATED TO BED #8.
[2019-07-30] MEDS ORDERED: NACL 0.9% 1,000 ML IV ONE ×2 (00:25→01:30)
[2019-07-30] MEDS ORDERED: ONDANSETRON 4 MG/2 ML VIAL IVP ONE (00:25)
[2019-07-30] MEDS ORDERED: KETOROLAC 30 MG/ML VIAL IVP ONE (02:05)
--- NOTE | 2019-07-30 02:35 | NUR ---
RE EVALUATED BY ERMD AND FOR D/C, NO NAUSEA NOR VOMITING NOTED.
[2019-07-30 02:45] VITALS: BP 105/68
--- NOTE | 2019-07-30 02:45 | NUR ---
Patient discharged with v/s stable. Written and verbal after care instructions given and explained. Patient alert, oriented and verbalized understanding of instructions. Ambulatory with steady gait. All questions addressed prior to discharge. ID band removed. Patient advised to follow up with PMD. Rx of MOTRIN 600MG, IMODIUM 2 MG, ZOFRAN 8 MG, CIPRO 500MG given. Patient educated on indication of medication including possible reaction and side effects. Opportunity to ask questions provided and answered.
== END 2019-07-30 02:45 | disposition home or self-care (01) ==
LOC: MED 23:58
DX: N39.0 Urinary tract infection, site not specified (principal); R11.2 Nausea with vomiting, unspecified; R19.7 Diarrhea, unspecified; J45.909 Unspecified asthma, uncomplicated; Z79.899 Other long term (current) drug therapy; Z90.49 Acquired absence of other specified parts of digestive tract
CPT/HCPCS: 81002; 81025; 96361; 96374; 99283; J2405; J7030

== ENCOUNTER 2021-03-08 17:39 | Emergency (ER) | payer MEDICAID, OTHER ==
[~2021-03-08] VITALS: Ht 154.9 cm; Wt 53.5 kg
[2021-03-08 18:08] VITALS: BP 117/71
[2021-03-08] MEDS ORDERED: CLINDAMYCIN 150 MG CAP PO ONE (19:45)
[2021-03-08] MEDS ORDERED: MORPHINE SULFATE 4 MG/ML SYR IM ONE (19:45)
[2021-03-08] MEDS ORDERED: CLIN-178 PO (20:17)
[2021-03-08 20:38] VITALS: BP 117/71
== END 2021-03-08 20:37 | disposition left against medical advice (07) ==
LOC: MED 17:39
DX: N61.1 Abscess of the breast and nipple (principal); N61.0 Mastitis without abscess; Z79.899 Other long term (current) drug therapy; Z90.49 Acquired absence of other specified parts of digestive tract
CPT/HCPCS: 87070; 87075; 87205; 96372; 99283; J2270

== ENCOUNTER 2021-03-11 23:22 | Emergency (ER) | payer OTHER ==
[~2021-03-11] VITALS: Ht 154.9 cm; Wt 53.1 kg
[~2021-03-11 23:22] MED LIST changes: +CLIN-178 PO
[2021-03-11 23:27] VITALS: BP 116/76
--- NOTE | 2021-03-11 23:43 | NUR ---
PT CALLED IN LOBBY AND OUTSIDE WITH NO ANSWER.
--- NOTE | 2021-03-11 23:48 | NUR ---
PT SEEN GETTING INTO [facility]. PATIENT LEFT WITHOUT BEING SEEN BY DR. FOX. NO FURTHER CARE PROVIDED FOR PATIENT.
== END 2021-03-11 23:43 | disposition left against medical advice (07) ==
LOC: MED 23:22
DX: N89.8 Other specified noninflammatory disorders of vagina (principal); Z53.21 Procedure and treatment not carried out due to patient leaving prior to being seen by health care provider

== ENCOUNTER 2021-03-19 21:43 | Emergency (ER) | payer OTHER ==
[~2021-03-19] VITALS: Ht 154.9 cm; Wt 54.4 kg
[2021-03-19 21:49] VITALS: BP 137/89
--- NOTE | 2021-03-19 23:00 | NUR ---
AMBULATED TO ER BED 9
--- NOTE | 2021-03-19 23:15 | NUR ---
25 y/o female bib self for hematuria; dysuria and uti symptoms x 3 days ago. "My partner cheated on me and I noticed these symptoms. They hurt so bad. Pain is a 10/10 sharp; nonradiating. PTS PAIN IS LOCATED AROUND THE LOWER ABD AND BILAT LOWER BACK. VSS. A&OX4. GCS 15. SKIN WNL. PT ALSO SAYS, "THERES ALSO CLOTS IN MY URINE." PMH: denies nkda meds: denies
[2021-03-19 23:38] LABS: APPEARANCE,URINE CLEAR (CLEAR); BILIRUBIN,URINE NEGATIVE (NEGATIVE); BLOOD, URINE 3+ (NEGATIVE); COLOR,URINE YELLOW (YELLOW); LEUKOCYTE ESTERASE ,URINE 3+ (NEGATIVE); NITRITE, URINE NEGATIVE (NEGATIVE); UGLUCOSE NEGATIVE (NEGATIVE)
--- NOTE | 2021-03-19 23:39 | NUR ---
ERMD AT BEDSIDE EVALUATING PT.
[2021-03-19 23:50] LABS: RBC,URINE 0-5 /HPF (0-5); WBC,URINE TOO MANY TO COUNT /HPF (0-5)
[2021-03-20] MEDS ORDERED: cefTRIAXone 1,000 MG VIAL ONE
[2021-03-20] MEDS ORDERED: LIDOCAINE MPF 1% 5 ML ONE (00:01)
[2021-03-20] MEDS: cefTRIAXone 1,000 MG in LIDOCAINE MPF 1% 2.1 ML IM ONE (00:07)
[2021-03-20] MEDS: ONDANSETRON 4 MG ODT PO ONE (00:08)
[2021-03-20] MEDS: HYDROcodone/APAP 5/325 MG 1 TAB TAB PO ONE (00:08)
[2021-03-20] MEDS ORDERED: CEPH-588 PO (01:04)
[2021-03-20] MEDS ORDERED: PYR100 PO (01:04)
[2021-03-20] MEDS ORDERED: IBUP-2213 PO (01:04)
[2021-03-20 01:16] VITALS: BP 97/56
--- NOTE | 2021-03-20 01:16 | NUR ---
Patient discharged with v/s stable. Written and verbal after care instructions given and explained. Patient alert, oriented and verbalized understanding of instructions. Ambulatory with steady gait. All questions addressed prior to discharge. ID band removed. Patient advised to follow up with PMD. Rx of keflex, pyridium, and motrin given. Patient educated on indication of medication including possible reaction and side effects. Opportunity to ask questions provided and answered.
== END 2021-03-20 01:16 | disposition home or self-care (01) ==
LOC: MED 21:43
DX: N39.0 Urinary tract infection, site not specified (principal); Z79.899 Other long term (current) drug therapy
CPT/HCPCS: 36415; 81001; 81025; 87086; 87491; 96372; 99283; J0696; J2001; Q0162

== ENCOUNTER 2021-03-24 18:56 | Emergency (ER) | payer OTHER ==
[~2021-03-24] VITALS: Ht 160 cm; Wt 56.7 kg
[~2021-03-24 18:56] MED LIST changes: +CEPH-588 PO; +IBUP-2213 PO; +PYR100 PO
--- NOTE | 2021-03-24 19:00 | NUR ---
PT W/C ASSISTED TO BED #7
--- NOTE | 2021-03-24 19:05 | NUR ---
EMT at bedside for EKG.
--- NOTE | 2021-03-24 19:05 | NUR ---
25 Y/O FEMALE PATIENT PRESENTS TO ED WITH FENTANYL WITHDRAWALS. PT STATES "EVERYTHING HURTS, MY CHEST, BACK AND A PAIN OF 10/10. I HAD FENTANYL LAST THURSDAY, I THOUGHT IT WAS METH THAT I TOOK, BUT IT WAS FENTANYL AND I'VE NEVER HAD FENTANYL BEFORE". DENIES N/V/D; SKIN IS PINK/WARM/DRY; AAOX4 WITH EVEN AND STEADY GAIT; LUNGS CLEAR BL; HR EVEN AND REGULAR; PT DENIES ANY FEVER, CP, SOB, OR COUGH AT THIS TIME; PATIENT STATES PAIN OF 10/10 AT THIS TIME; PATIENT POSITIONED FOR COMFORT; HOB ELEVATED; BEDRAILS UP X2; BED DOWN. ER MD MADE AWARE OF PT STATUS. NKA PMH: APPENDIX REMOVAL
--- NOTE | 2021-03-24 19:10 | NUR ---
NACHO BLOOD WORKS FROM PT, SENT TO LAB, HANDED TO HEMALATHA HENDRICKSON
[2021-03-24 19:13] VITALS: BP 103/74
[2021-03-24] MEDS ORDERED: NACL 0.9% 1,000 ML IV ONE (19:25)
[2021-03-24 19:29] LABS: BASOPHILS % (AUTO) 0.2 % (0.0-2.0); EOSINOPHILS # (AUTO) 0.1 K/uL (0-0.4); EOSINOPHILS % (AUTO) 0.8 % (0.0-4.0); HEMATOCRIT 45.3 % (36-48); HEMOGLOBIN 15.5 g/dL (12.0-16.0); LYMPHOCYTES # (AUTO) 1.1 K/uL (2.5-16.5); LYMPHOCYTES % (AUTO) 14.5 % (20.5-51.1); MEAN CORPUSCULAR HEMOGLOBIN 32 pg (27-31); MEAN CORPUSCULAR HGB CONC 34 g/dL (33-37); MONOCYTES # (AUTO) 0.5 K/uL (0.8-1.0); MONOCYTES % (AUTO) 6.7 % (1.7-9.3); NEUTROPHILS # (AUTO) 5.8 K/uL (1.8-7.7); NEUTROPHILS % (AUTO) 77.8 % (42.2-75.2); PLATELET COUNT (AUTO) 266 K/uL (140-450); RED BLOOD CELL COUNT(AUTO) 4.87 MIL/uL (4.20-5.40); RED CELL DISTRIBUTION WIDTH 13.3 % (11.6-13.7); WHITE BLOOD COUNT (AUTO) 7.5 K/uL (4.8-10.8)
[2021-03-24] MEDS ORDERED: ONDANSETRON 4 MG/2 ML VIAL IVP ONE (19:30)
[2021-03-24 19:37] LABS: ALBUMIN 4.3 g/dL (3.4-5.0); ANION GAP 11.8 (8-16); CARBON DIOXIDE 25.9 mmol/L (21-32); TOTAL BILIRUBIN 0.5 mg/dL (0.0-1.0)
[2021-03-24 19:39] LABS: POTASSIUM 2.7 mmol/L (3.5-5.1)
[2021-03-24] MEDS ORDERED: POTASSIUM CHLORIDE 10 MEQ TABER PO ONE ×2 (19:45→21:25)
[2021-03-24] MEDS ORDERED: POTASSIUM CHL 40 MEQ/ D5-1/2NS 1,000 ML IV ONE (19:45)
--- NOTE | 2021-03-24 19:45 | NUR ---
COLLECTED URINE, SENT TO LAB, HANDED TO [facility]
[2021-03-24 20:15] LABS: BARBITURATE, URINE NEGATIVE ng/ml (NEG <=200); BENZODIAZEPINE, URINE NEGATIVE ng/mL (NEG <=200); CANNABINOID, URINE POSITIVE ng/mL (NEG <=50); COCAINE, URINE NEGATIVE ng/mL (NEG <=300); OPIATE, URINE NEGATIVE ng/mL (NEG <=2000); PHENCYCLIDINE SCREEN,URINE NEGATIVE ng/mL (NEG <=25)
[2021-03-24] MEDS ORDERED: ONDA-24 PO (22:41)
[2021-03-24] MEDS ORDERED: ACET-1182 PO (22:41)
--- NOTE | 2021-03-24 23:10 | NUR ---
Patient discharged with v/s stable. Written and verbal after care instructions given and explained. Patient alert, oriented and verbalized understanding of instructions. Ambulatory with steady gait. All questions addressed prior to discharge. ID band removed. Patient advised to follow up with PMD. Rx of ZOFRAN AND TYLENOL given. Patient educated on indication of medication including possible reaction and side effects. Opportunity to ask questions provided and answered.
[2021-03-24 23:12] VITALS: BP 103/74
--- NOTE | 2021-03-25 19:57 | NUR ---
LATE ENTRY- D5-0.45%NS-40 KCL mEQ IVF DISCONTINUED AT 2310
== END 2021-03-24 23:10 | disposition home or self-care (01) ==
LOC: MED 18:56
DX: E87.6 Hypokalemia (principal); F15.90 Other stimulant use, unspecified, uncomplicated; F12.90 Cannabis use, unspecified, uncomplicated; F11.90 Opioid use, unspecified, uncomplicated; F11.23 Opioid dependence with withdrawal; Z90.49 Acquired absence of other specified parts of digestive tract
CPT/HCPCS: 36415; 80053; 80305; 81025; 83690; 84702; 85025; 93005; 96361; 96365; 96366; 96375; 99284; J2405; J7030

== ENCOUNTER 2021-04-05 07:26 | Emergency (ER) | payer OTHER ==
[~2021-04-05] VITALS: Ht 154.9 cm; Wt 51.7 kg
[~2021-04-05 07:26] MED LIST changes: +ACET-1182 PO; +ONDA-24 PO
[2021-04-05 07:32] VITALS: BP 129/85
--- NOTE | 2021-04-05 07:39 | NUR ---
PT AMBULATED TO BED 12 WITH EVEN AND STEADY GAIT
--- NOTE | 2021-04-05 07:50 | NUR ---
25/F presents to ED with c/o UTI symptoms. Patient states she was seen here for same symptoms twice within the last 3 weeks and was given Rx of antibiotics, stating symptoms got "a little better but they came back." Patient states boyfriend recently admitted to "sleeping with other women" stating she is concerned for STDs, requesting to be tested. Patient denies taking anything at home for pain, reporting 9/10 lower abdominal pain radiating to her lower back, stating burning, frequency and dribbling when the need to void. Patient denies nausea, vomiting or diarrhea. Abdomen and lower back are non tender to touch, denies fever or chills.
[2021-04-05] MEDS ORDERED: cefTRIAXone 250 MG in LIDOCAINE MPF 1% 0.9 ML IM ONE (08:10)
[2021-04-05] MEDS ORDERED: AZITHROMYCIN 250 MG TAB PO ONE (08:10)
[2021-04-05] MEDS ORDERED: cefTRIAXone 250 MG VIAL ONE (08:12)
[2021-04-05] MEDS ORDERED: LIDOCAINE MPF 1% 5 ML ONE (08:13)
[2021-04-05 08:38] LABS: APPEARANCE,URINE HAZY (CLEAR); BILIRUBIN,URINE 1+ (NEGATIVE); BLOOD, URINE 3+ (NEGATIVE); COLOR,URINE YELLOW (YELLOW); LEUKOCYTE ESTERASE ,URINE 2+ (NEGATIVE); NITRITE, URINE NEGATIVE (NEGATIVE); UGLUCOSE NEGATIVE (NEGATIVE)
[2021-04-05 08:43] VITALS: BP 129/85
[2021-04-05 08:49] LABS: RBC,URINE 11-20 (MOD) /HPF (0-5)
[2021-04-05 08:50] LABS: WBC,URINE TOO MANY TO COUNT /HPF (0-5)
== END 2021-04-05 08:40 | disposition home or self-care (01) ==
LOC: MED 07:26
DX: R30.0 Dysuria (principal); F15.90 Other stimulant use, unspecified, uncomplicated; Z20.2 Contact with and (suspected) exposure to infections with a predominantly sexual mode of transmission; Z79.899 Other long term (current) drug therapy
CPT/HCPCS: 36415; 81001; 81025; 87086; 96372; 99283; J0696; J2001; 87491

== ENCOUNTER 2021-07-07 06:28 | Emergency (ER) | payer OTHER ==
[~2021-07-07] VITALS: Ht 157.5 cm; Wt 49.4 kg
[~2021-07-07 06:28] MED LIST changes: -CLIN-178 PO; +CLIN300C52 PO; +ONDA-188 PO; -ONDA-24 PO
[2021-07-07 06:31] VITALS: BP 128/71
--- NOTE | 2021-07-07 07:20 | NUR ---
ATTEMPTED TO CALL PATIENT, BUT ANSWER AT THIS TIME
[2021-07-07 08:03] VITALS: BP 128/71
--- NOTE | 2021-07-07 08:03 | NUR ---
PATIENT LEFT WITHOUT BEING SEEN BY DR. CRAIN. NO FURTHER CARE PROVIDED FOR PATIENT.
== END 2021-07-07 08:03 | disposition left against medical advice (07) ==
LOC: MED 06:28
DX: O26.891 Other specified pregnancy related conditions, first trimester (principal); R10.9 Unspecified abdominal pain; Z3A.08 8 weeks gestation of pregnancy; Z53.21 Procedure and treatment not carried out due to patient leaving prior to being seen by health care provider

== ENCOUNTER 2021-07-16 01:50 | Emergency (ER) | payer OTHER ==
[~2021-07-16] VITALS: Ht 154.9 cm; Wt 49.0 kg
[2021-07-16 01:57] VITALS: BP 120/84
--- NOTE | 2021-07-16 02:09 | NUR ---
PT AMBULATED TO BED #12
--- NOTE | 2021-07-16 02:21 | NUR ---
26 Y/O F BIB SELF W C/O VAGINAL BLEEDING X1 WEEK, PT REPORTS STARTED OFF W BLOOD CLOTS AND HEAVY, WAS SEEN AT [facility] BUT SENT HOME TOLD SHE WAS 8 WEEKS . PT REPORTS NOW IS SPOTTING BROWN BLOOD, NO LONGER HEAVY BLEEDING, NO ABNORMAL VAG DISCHARGE. PT ALSO REPORTS ONGOING LOWER ABDOMINAL CRAMPING X1 WEEK, 610 +LOWER BACK PAIN RADIATING TO NECK. DENIES ANY INJURY. +BURNING URINATION, URGENCY, FREQUENCY AND RETENTION. DENIES BLOOD IN URINE. DENIES N/V/D, FEVERS. BOWEL SOUNDS PRESENT. ABDOMEN SOFT NON-TENDER. PT REPORTS THIS IS HER 4TH W 3 LIVE BIRTHS. PT LAYING SUPINE IN BED LOCKED IN LOWEST POSITION W X1 SIDERAIL UP. BREATHING EVEN AND UNLABORED. NAD NOTED, WILL CONTINUE TO MONITOR. PMH:ASTHMA NKA
[2021-07-16 02:45] VITALS: BP 120/84
--- NOTE | 2021-07-16 02:45 | NUR ---
PATIENT LEFT WITHOUT BEING SEEN BY DR. DAVIS. NO FURTHER CARE PROVIDED FOR PATIENT.
== END 2021-07-16 02:45 | disposition left against medical advice (07) ==
LOC: MED 01:50
DX: O20.8 Other hemorrhage in early pregnancy (principal); Z53.21 Procedure and treatment not carried out due to patient leaving prior to being seen by health care provider; Z3A.08 8 weeks gestation of pregnancy

== ENCOUNTER 2021-08-15 01:05 | Emergency (ER) | payer OTHER ==
[~2021-08-15] VITALS: Ht 162.6 cm; Wt 54.4 kg
[2021-08-15 01:05] VITALS: BP 127/79
--- NOTE | 2021-08-15 01:13 | NUR ---
PT BROUGHT TO BED 8 VIA WILLIS BUTLER
--- NOTE | 2021-08-15 01:30 | NUR ---
PT FRIEND JANICE CALLED. HE SAID THAT WHEN SHE IS READY AND NEEDS A RIDE HE CAN COME GET HER. HE SAID SHE HAS HIS NUMBER.
--- NOTE | 2021-08-15 01:55 | NUR ---
pt refused blood labs
--- NOTE | 2021-08-15 02:17 | NUR ---
26 Y/O F BIBA FOUND UNRESPONSIVE AND ALOC. PARAMEDICS WERE NOT SURE ABOUT WHAT SHE TOOK. PT WAS PUT ON 2 L OF OXYGEN VIA NASAL CANNULA AND WAS ABLE TO CONFIRM WHO SHE SAID SHE WAS. PT WAS CONFUSED ON SITUATION , TIME, DATE. AX0 X3. PT HAS EMESIS ON CLOTHES AND HANDS. PARAMEDICS SUSPECTED SHE MAY HAVE BEEN HOMELESS BUT PT STATES SHE LIVES WITH MOM. PT ADMITTED TO DRINKING A COUPLE OF "FOUR LOCOS" AND THEN SMOKING SOMETHING AFTER BUT SHE WAS UNSURE WHAT WAS IN IT. PTS FRIEND "JANICE" CALLED AND STATED HE WAS THE ONE WHO CALLED THE ER. PT GAVE CONFIRMATION THAT HE COULD KNOW STATUS OF HER WELL BEING. PT FRIEND "JANICE" STATED THAT SHE HAD BEEN DRINKING ALL NIGHT, THROWING UP AND WANDERED AWAY. HE FOUND HER BY A [employer] AND SHE HAS ALOC , HE THEN CALLED 911.
[2021-08-15] MEDS: NACL 0.9% 1,000 ML IV ONE (02:54)
--- NOTE | 2021-08-15 03:10 | NUR ---
PT QUITELY SLEEPING IN BED. TRIED TO AROUSE FOR URINE. WOULD NOT WAKE UP.
--- NOTE | 2021-08-15 04:00 | NUR ---
PT QUIETLY SLEEPING IN BED.
--- NOTE | 2021-08-15 05:00 | NUR ---
DR MURRELL AROUSE PATIENT. FINALLY ABLE TO GET URINE SAMPLE
[2021-08-15 05:50] VITALS: BP 100/63
[2021-08-15 06:06] LABS: BARBITURATE, URINE NEGATIVE ng/ml (NEG <=200); BENZODIAZEPINE, URINE NEGATIVE ng/mL (NEG <=200); CANNABINOID, URINE POSITIVE ng/mL (NEG <=50); COCAINE, URINE NEGATIVE ng/mL (NEG <=300); PHENCYCLIDINE SCREEN,URINE NEGATIVE ng/mL (NEG <=25)
[2021-08-15 06:07] LABS: OPIATE, URINE NEGATIVE ng/mL (NEG <=2000)
== END 2021-08-15 05:50 | disposition home or self-care (01) ==
LOC: MED 01:05
DX: F10.129 Alcohol abuse with intoxication, unspecified (principal); R41.82 Altered mental status, unspecified; R11.10 Vomiting, unspecified; J45.909 Unspecified asthma, uncomplicated; E11.9 Type 2 diabetes mellitus without complications
CPT/HCPCS: 80305; 96360; 99285

== ENCOUNTER 2021-11-09 04:14 | Emergency (ER) | payer OTHER ==
[~2021-11-09] VITALS: Ht 154.9 cm; Wt 47.6 kg
[2021-11-09 04:21] VITALS: BP 112/66
--- NOTE | 2021-11-09 04:30 | NUR ---
TO BR FOLLOWING TRIAGE, UA GIVEN THEN PT WALKED OUT OF ER.
--- NOTE | 2021-11-09 04:43 | NUR ---
PT PROVIDED URINE BUT WENT BACK OUT TO HER CAR. UA AND URINE PREG POC DONE. URINE IS POSITIVE. DR. DAVIS MADE AWARE.
== END 2021-11-09 04:43 | disposition left against medical advice (07) ==
LOC: MED 04:14
DX: R10.30 Lower abdominal pain, unspecified (principal); Z53.21 Procedure and treatment not carried out due to patient leaving prior to being seen by health care provider

== ENCOUNTER 2021-11-10 21:18 | Emergency (ER) | payer OTHER ==
[~2021-11-10] VITALS: Ht 154.9 cm; Wt 47.6 kg
[2021-11-10 21:23] VITALS: BP 104/61
--- NOTE | 2021-11-10 21:32 | NUR ---
patient ambulated to bed 4
[2021-11-10 22:51] VITALS: BP 104/61
--- NOTE | 2021-11-10 22:51 | NUR ---
Patient does not wish to proceed with medical care recommended by Thuy BOOKER. Patient given information related to possible complications, up to and including , which could occur as a result of leaving hospital at this time. Patient verbalizes understanding of risks involved leaving against medical advice. Patient has signed AMA form.
== END 2021-11-10 22:51 | disposition left against medical advice (07) ==
LOC: MED 21:18
DX: O46.8X1 Other antepartum hemorrhage, first trimester (principal); O26.891 Other specified pregnancy related conditions, first trimester; R10.30 Lower abdominal pain, unspecified; J45.909 Unspecified asthma, uncomplicated; Z90.49 Acquired absence of other specified parts of digestive tract; F17.210 Nicotine dependence, cigarettes, uncomplicated; Z71.6 Tobacco abuse counseling; Z3A.01 Less than 8 weeks gestation of pregnancy
CPT/HCPCS: 81002; 81025; 99282

== ENCOUNTER 2022-04-29 03:01 | Inpatient (IN) | payer MEDICAID ==
[~2022-04-29] VITALS: Ht 157.5 cm; Wt 54.4 kg
[2022-04-29 04:56] VITALS: BP 107/62
[2022-04-29] MEDS: LACTATED RINGERS 1,000 ML IV SCH ×2 (09:04→12:53)
--- NOTE | 2022-04-29 09:09 | NUR ---
PATIENT HAS BEEN SCREENED AND CATEGORIZED LOW NUTRITION RISK. PATIENT WILL BE SEEN WITHIN 7 DAYS OF ADMISSION. 05/06/[address]
[2022-04-29] MEDS ORDERED: MAG SULF 2000 MG/WATER PREMIX 100 ML IV ONE (10:05)
[2022-04-29] MEDS ORDERED: BETAMETH ACET/BETAMETH NA PH 30 MG/5 ML VIAL IM SCH (10:20)
[2022-04-29] MEDS: MAG SULF 20 GM/H2O PREMIX DRIP 500 ML IV SCH ×2 (10:59→21:40)
[2022-04-29 11:00] LABS: BASOPHILS % (AUTO) 0.2 % (0.0-2.0); EOSINOPHILS # (AUTO) 0.1 K/uL (0-0.4); EOSINOPHILS % (AUTO) 1.2 % (0.0-4.0); HEMATOCRIT 29.1 % (36-48); HEMOGLOBIN 10.2 g/dL (12.0-16.0); LYMPHOCYTES # (AUTO) 1.7 K/uL (2.5-16.5); LYMPHOCYTES % (AUTO) 14.9 % (20.5-51.1); MEAN CORPUSCULAR HEMOGLOBIN 33 pg (27-31); MEAN CORPUSCULAR HGB CONC 35 g/dL (33-37); MEAN CORPUSCULAR VOLUME 93.8 fL (80-94); MONOCYTES # (AUTO) 0.8 K/uL (0.8-1.0); MONOCYTES % (AUTO) 6.9 % (1.7-9.3); NEUTROPHILS # (AUTO) 8.7 K/uL (1.8-7.7); NEUTROPHILS % (AUTO) 76.8 % (42.2-75.2); PLATELET COUNT (AUTO) 299 K/uL (140-450); RED BLOOD CELL COUNT(AUTO) 3.11 MIL/uL (4.20-5.40); RED CELL DISTRIBUTION WIDTH 12.8 % (11.6-13.7); WHITE BLOOD COUNT (AUTO) 11.3 K/uL (4.8-10.8)
[2022-04-29 11:13] LABS: ALBUMIN 2.2 g/dL (3.4-5.0); ANION GAP 11.3 (8-16); CARBON DIOXIDE 22.5 mmol/L (21-32); CREATININE 0.4 mg/dL (0.6-1.3); MAGNESIUM 2.5 mg/dL (1.8-2.4); TOTAL BILIRUBIN 0.3 mg/dL (0.0-1.0)
[2022-04-29 11:21] LABS: POTASSIUM 2.8 mmol/L (3.5-5.1)
[2022-04-29] MEDS ORDERED: KCL 20 MEQ/WATER INJ PREMIX 100 ML IV SCH (12:45)
[2022-04-29] MEDS: MORPHINE SULFATE 10 MG/ML VIAL IVP PRN (20:04)
[2022-04-29] MEDS: ONDANSETRON 4 MG/2 ML VIAL IVP PRN (20:05)
[2022-04-30] MEDS: LACTATED RINGERS 1,000 ML IV SCH ×3 (05:47→17:58)
[2022-04-30] MEDS: MAG SULF 20 GM/H2O PREMIX DRIP 500 ML IV SCH ×2 (08:21→18:00)
[2022-04-30] MEDS ORDERED: BETAMETH ACET/BETAMETH NA PH 30 MG/5 ML VIAL IM ONE (11:11)
[2022-04-30] MEDS: MORPHINE SULFATE 10 MG/ML VIAL IVP PRN ×2 (15:29→21:50)
[2022-04-30] MEDS: ONDANSETRON 4 MG/2 ML VIAL IVP PRN ×2 (15:30→21:51)
[2022-04-30] MEDS ORDERED: ALUMINUM HYD/MAG/SIMETHICONE 30 ML UDC ONE (21:40)
[2022-04-30] MEDS ORDERED: ALUMINUM HYD/MAG/SIMETHICONE 30 ML UDC PO PRN (21:40)
[2022-04-30 21:50] VITALS: BP 122/69
[2022-05-01] MEDS: MAG SULF 20 GM/H2O PREMIX DRIP 500 ML IV SCH (02:58)
== END 2022-05-01 18:25 | disposition home or self-care (01) | DRG 566 ==
LOC: UNDOADMOB 03:01 → MLD 03:01 → OBSVTOIN 10:27 → MLD 16:40 → INTOOBSV 20:33 → OBSVTOIN 20:33
PROVIDERS: ADMIT Obstetrics & Gynecology; ATTEND Obstetrics & Gynecology
DX: O60.03 Preterm labor without delivery, third trimester (principal); O09.213 Supervision of pregnancy with history of pre-term labor, third trimester; E87.6 Hypokalemia; O99.353 Diseases of the nervous system complicating pregnancy, third trimester; R10.9 Unspecified abdominal pain; Z20.822 Contact with and (suspected) exposure to COVID-19; G43.909 Migraine, unspecified, not intractable, without status migrainosus; Z3A.29 29 weeks gestation of pregnancy; O26.893 Other specified pregnancy related conditions, third trimester
CPT/HCPCS: 36415; 76805; 76817; 80053; 83735; 85025; 86592; 86886; 86900; 86901; J0702; J2270; J2405; J3475; J3480; Q0092

== ENCOUNTER 2023-03-04 21:52 | Emergency (ER) | payer MEDICAID, OTHER ==
[~2023-03-04] VITALS: Ht 154.9 cm; Wt 59.0 kg
[~2023-03-04 21:52] MED LIST changes: -CEPH-588 PO; -CLIN300C52 PO; -ONDA-188 PO; -PYR100 PO
[2023-03-04 21:55] VITALS: BP 151/90; PULSE 97; RESP 19; TEMP 98.3; O2SAT 100
--- NOTE | 2023-03-04 21:55 | NUR ---
to bed ambulatory
[2023-03-04 22:18] VITALS: O2SAT 100
--- NOTE | 2023-03-04 22:22 | NUR ---
received in bed 12 with c/o gastritis flareup after having bad news 4 days ago. pain radiates down right leg and is feeling muscle cramping.
[2023-03-04] MEDS ORDERED: LORazepam 1 MG TAB PO ONE (22:45)
[2023-03-04] MEDS ORDERED: ONDANSETRON 4 MG ODT PO ONE (22:45)
[2023-03-04] MEDS ORDERED: KETOROLAC 30 MG/ML VIAL IM ONE (22:45)
[2023-03-04 23:01] LABS: BASOPHILS % (AUTO) 0.3 % (0.0-2.0); EOSINOPHILS # (AUTO) 0.3 K/uL (0-0.4); EOSINOPHILS % (AUTO) 2.4 % (0.0-4.0); HEMATOCRIT 39.5 % (36-48); HEMOGLOBIN 13.7 g/dL (12.0-16.0); LYMPHOCYTES # (AUTO) 2.6 K/uL (2.5-16.5); LYMPHOCYTES % (AUTO) 21.8 % (20.5-51.1); MEAN CORPUSCULAR HEMOGLOBIN 31 pg (27-31); MEAN CORPUSCULAR HGB CONC 35 g/dL (33-37); MEAN CORPUSCULAR VOLUME 89.8 fL (80-94); MONOCYTES % (AUTO) 8.4 % (1.7-9.3); NEUTROPHILS # (AUTO) 7.9 K/uL (1.8-7.7); NEUTROPHILS % (AUTO) 67.1 % (42.2-75.2); PLATELET COUNT (AUTO) 275 K/uL (140-450); RED CELL DISTRIBUTION WIDTH 13.5 % (11.6-13.7); WHITE BLOOD COUNT (AUTO) 11.8 K/uL (4.8-10.8)
[2023-03-04 23:15] LABS: ALBUMIN 3.9 g/dL (3.4-5.0); ANION GAP 14.7 (8-16); CARBON DIOXIDE 23.9 mmol/L (21-32); CREATININE 0.6 mg/dL (0.6-1.3); LIPASE 62 U/L (73-393); POTASSIUM 3.6 mmol/L (3.5-5.1); TOTAL BILIRUBIN 0.2 mg/dL (0.0-1.0)
--- NOTE | 2023-03-05 00:31 | NUR ---
TO BR FOR UA
--- NOTE | 2023-03-05 00:41 | NUR ---
UA OBTAINED AND SENT TO LAB
[2023-03-05 00:44] LABS: APPEARANCE,URINE CLEAR (CLEAR); BILIRUBIN,URINE NEGATIVE (NEGATIVE); BLOOD, URINE TRACE-I (NEGATIVE); COLOR,URINE YELLOW (YELLOW); LEUKOCYTE ESTERASE ,URINE 3+ (NEGATIVE); NITRITE, URINE NEGATIVE (NEGATIVE); UGLUCOSE NEGATIVE (NEGATIVE)
[2023-03-05 00:48] LABS: RBC,URINE 0-5 /HPF (0-5)
[2023-03-05 00:56] LABS: BARBITURATE, URINE NEGATIVE ng/ml (NEG <=200); BENZODIAZEPINE, URINE NEGATIVE ng/mL (NEG <=200); CANNABINOID, URINE NEGATIVE ng/mL (NEG <=50); COCAINE, URINE NEGATIVE ng/mL (NEG <=300); OPIATE, URINE NEGATIVE ng/mL (NEG <=2000); PHENCYCLIDINE SCREEN,URINE NEGATIVE ng/mL (NEG <=25)
[2023-03-05] MEDS ORDERED: cefTRIAXone 1,000 MG in LIDOCAINE MPF 1% 2.1 ML IM ONE (01:10)
[2023-03-05] MEDS ORDERED: SULF-59 PO (01:18)
[2023-03-05] MEDS ORDERED: IBUP-2213 PO (01:18)
[2023-03-05] MEDS ORDERED: MAG355OR2 PO (01:18)
[2023-03-05] MEDS ORDERED: ONDA-188 PO (01:18)
[2023-03-05] MEDS ORDERED: HYDR25CA1 PO (01:19)
[2023-03-05] MEDS ORDERED: cefTRIAXone 1,000 MG VIAL ONE (01:20)
[2023-03-05] MEDS ORDERED: LIDOCAINE MPF 1% 5 ML ONE (01:20)
--- NOTE | 2023-03-05 01:32 | NUR ---
Patient discharged with v/s stable. Written and verbal after care instructions given and explained. Patient alert, oriented and verbalized understanding of instructions. Ambulatory with steady gait. All questions addressed prior to discharge. ID band removed. Patient advised to follow up with PMD. Rx of vistaril, ibuprofen, maalox, zofran, bactrim given. Opportunity to ask questions provided and answered.
== END 2023-03-05 01:32 | disposition home or self-care (01) ==
LOC: MED 21:52
DX: N39.0 Urinary tract infection, site not specified (principal); R10.13 Epigastric pain; M54.50 Low back pain, unspecified; M25.551 Pain in right hip; M25.552 Pain in left hip; J45.909 Unspecified asthma, uncomplicated; Z79.899 Other long term (current) drug therapy
CPT/HCPCS: 36415; 80053; 80305; 81001; 81025; 82550; 83690; 85025; 87086; 96372; 99284; G0482; J0696; J1885; J2001; Q0162

== ENCOUNTER 2023-12-06 16:34 | Emergency (ER) | payer OTHER ==
[~2023-12-06 16:34] MED LIST changes: +HYDR25CA1 PO; +MAG355OR2 PO; +ONDA-188 PO; +SULF-59 PO
== END 2023-12-06 17:23 | disposition left against medical advice (07) ==
LOC: MED 16:34
DX: R10.9 Unspecified abdominal pain (principal); Z53.21 Procedure and treatment not carried out due to patient leaving prior to being seen by health care provider

== ENCOUNTER 2024-04-25 21:20 | Emergency (ER) | payer OTHER ==
[~2024-04-25] VITALS: Ht 157.5 cm; Wt 72.6 kg
[2024-04-25 21:29] VITALS: BP 135/100; PULSE 94; RESP 14; TEMP 97.3; O2SAT 99
[2024-04-25 23:58] LABS: APPEARANCE,URINE CLEAR (CLEAR); BILIRUBIN,URINE NEGATIVE (NEGATIVE); BLOOD, URINE NEGATIVE (NEGATIVE); COLOR,URINE YELLOW (YELLOW); LEUKOCYTE ESTERASE ,URINE NEGATIVE (NEGATIVE); NITRITE, URINE NEGATIVE (NEGATIVE); PROTEIN,URINE NEGATIVE (NEGATIVE); UGLUCOSE NEGATIVE (NEGATIVE); UROBILINOGEN,URINE 0.2 EU/dL (0.2 - 1)
[2024-04-26] MEDS ORDERED: METR-435 PO (00:25)
== END 2024-04-26 00:30 | disposition home or self-care (01) ==
LOC: MED 21:20
DX: N76.0 Acute vaginitis (principal); B96.89 Other specified bacterial agents as the cause of diseases classified elsewhere; J45.909 Unspecified asthma, uncomplicated; Z79.899 Other long term (current) drug therapy
CPT/HCPCS: 81003; 81025; 87210; 87491; 99283

== ENCOUNTER 2024-05-01 13:31 | Emergency (ER) | payer OTHER ==
[~2024-05-01] VITALS: Ht 154.9 cm; Wt 74.8 kg
[~2024-05-01 13:31] MED LIST changes: +METR-435 PO
[2024-05-01 13:42] VITALS: BP 131/77; PULSE 98; RESP 22; TEMP 98.7; O2SAT 99
== END 2024-05-01 15:22 | disposition home or self-care (01) ==
LOC: MED 13:31
DX: R21 Rash and other nonspecific skin eruption (principal); R03.0 Elevated blood-pressure reading, without diagnosis of hypertension; J45.909 Unspecified asthma, uncomplicated; Z79.1 Long term (current) use of non-steroidal anti-inflammatories (NSAID); Z79.899 Other long term (current) drug therapy
CPT/HCPCS: 81025; 99282; 99284